=== PATIENT | male | born 1935 | race Caucasian/White ===

== ENCOUNTER 2016-12-03 13:31 | Day surgery (SDC) | payer MEDICARE ==
[~2016-12-03] VITALS: Ht 172.7 cm; Wt 92.1 kg
[~2016-12-03 13:31] MED LIST: ALLO100T30 PO; ASPI-496 PO; CHOL200024 PO; CLOP75TA PO; EVOL140P SQ; GEMF600T3 PO; LISI2.5T PO; LORA-439 PO; LOVA10TA PO; METO25TA35 PO; MULT-224 PO; NITR0.4T SL; OMEP-110 PO; OXYC5TAB3 PO; TEMA30CA PO; UBID100C24 PO
[2016-12-03] MEDS ORDERED: LACTATED RINGERS 1,000 ML IV SCH ×2 (14:08→18:30)
[2016-12-03 14:39] VITALS: BP 112/74
[2016-12-03] MEDS ORDERED: FENTANYL PF 100 MCG/2ML IV PRN (16:00)
[2016-12-03] MEDS ORDERED: ONDANSETRON 2MG/ML, 2ML IVPush PRN (16:00)
[2016-12-03] MEDS ORDERED: ALBUTEROL/IPRATROPIUM 2.5MG/0.5MG, 3 ML NPPB PRN (16:00)
[2016-12-03] MEDS ORDERED: METOPROLOL 1 MG/ML, 5ML IV PRN (16:00)
[2016-12-03] MEDS ORDERED: hydrALAzine 20 MG/ML, 1ML IV PRN (16:00)
[2016-12-03] MEDS ORDERED: EPHEDRINE 50 MG/ML, 1ML IVPush PRN (16:00)
[2016-12-03] MEDS ORDERED: LABETALOL 5MG/ML, 20ML IV PRN (16:00)
[2016-12-03] MEDS ORDERED: FENTANYL PF 100 MCG/2ML ONE (16:13)
[2016-12-03] MEDS ORDERED: DEXAMETHASONE 4 MG/ML, 1ML ONE (16:15)
[2016-12-03] MEDS ORDERED: GLYCOPYRROLATE 0.2MG/1ML ONE (16:15)
[2016-12-03] MEDS ORDERED: PROPOFOL 10 MG/ML, 20ML ONE (16:15)
[2016-12-03] MEDS ORDERED: EPINEPHRINE 1 MG/ML, 1ML ONE (16:15)
[2016-12-03] MEDS ORDERED: CEFAZOLIN 1,000 MG ONE (16:15)
[2016-12-03] MEDS ORDERED: ROCURONIUM 10 MG/ML ONE (16:15)
[2016-12-03] MEDS ORDERED: SUCCINYLCHOLINE 20 MG/ML, 10ML ONE (16:15)
[2016-12-03] MEDS ORDERED: GENTAMICIN 80 MG/2 ML ONE (16:15)
[2016-12-03] MEDS ORDERED: VISIPAQUE 270 MG/ML, 50ML BOTTLE IV ONE (16:55)
[2016-12-03] MEDS ORDERED: OMNIPAQUE 350 MG/ML, 50 ML BOTTLE ONE (17:24)
[2016-12-03] MEDS ORDERED: morphine SULFATE 10 MG/ML, 1ML IV PRN (18:30)
[2016-12-03] MEDS ORDERED: ONDANSETRON 2MG/ML, 2ML IV PRN (18:30)
[2016-12-03] MEDS ORDERED: OXYcodone/APAP 5/325MG TABLET PO PRN (18:30)
== END 2016-12-03 20:30 | disposition home or self-care (01) ==
LOC: OUT 13:31 → 4NOR 18:10 → OUT 20:30
PROVIDERS: ATTEND Urology
DX: N28.9 Disorder of kidney and ureter, unspecified (principal); N32.89 Other specified disorders of bladder; I25.10 Atherosclerotic heart disease of native coronary artery without angina pectoris; I10 Essential (primary) hypertension; E78.00 Pure hypercholesterolemia, unspecified; I25.2 Old myocardial infarction; Z88.8 Allergy status to other drugs, medicaments and biological substances; Z88.5 Allergy status to narcotic agent
CPT/HCPCS: 52351; 74420; 93005; C1758; C1769; J0171; J0330; J0690; J1100; J1580; J2704; J3010; J7120; Q9966; Q9967; J3490